=== PATIENT | male | born 1975 | race Caucasian/White ===

== ENCOUNTER 2017-01-13 17:05 | Emergency (ER) | payer SELFPAY ==
[~2017-01-13] VITALS: Ht 152.4 cm; Wt 55.2 kg
[2017-01-13 17:07] VITALS: Ht 152.4 cm; Wt 55.2 kg
[2017-01-13] MEDS ORDERED: SODIUM CHLORIDE 0.9% 1L BAG IV* STA (17:17)
[2017-01-13] MEDS ORDERED: PIPER-TAZO 3.375 GM IV (PMX) 50 ML IVPB STA (17:17)
[2017-01-13] MEDS ORDERED: CLINDAMYCIN 900 MG/D5W (PMX) 50 ML IVPB SCH (17:30)
[2017-01-13] MEDS ORDERED: VANCOMYCIN 1 GM (PMX) 250 ML IVPB ONE (17:30)
--- NOTE | 2017-01-13 18:09 | RADRPT ---
PROCEDURE: XR Left Hand. CLINICAL INDICATION: Trauma. Left hand pain. TECHNIQUE: Three views. Frontal lateral and oblique images of the left hand were obtained. COMPARISON: No prior studies are available for comparison. FINDINGS: There is no fracture or dislocation. There is extensive gas throughout the soft tissues of the left fourth finger and soft tissues surrou nding the third, fourth, and fifth metacarpals. There is marked diffuse soft tissue swelling posteri diane. Articular surfaces are intact. There is no lytic or blastic lesion. There is no radiopaque foreign body. IMPRESSION: 1. Extensive gas throughout the soft tissues of the left hand as described above. Findings are susp icious for gas gangrene. 2. No bone lytic lesion to suggest osteomyelitis. 3. Otherwise unremarkable study. Call report: A call report of the findings was made to Dr. Juan Luis Joseph on 01/13/2017 at 1805 andrei rs. RPTAT: QQ .Jon Oquendo MD, Date Time Electronically viewed and signed by .Jon Oquendo MD, on 01/13/2017 18:09 .R/
--- NOTE | 2017-01-13 18:15 | RADRPT ---
PROCEDURE: XR Chest. CLINICAL INDICATION: Sepsis. TECHNIQUE: Single frontal view. COMPARISON: None. FINDINGS: The lungs are clear. The heart size is normal. There is no pleural effusion. There is no pneumothorax. IMPRESSION: 1. Normal chest radiograph. RPTAT: QQ .Jon Oquendo MD, Date Time Electronically viewed and signed by .Jon Oquendo MD, on 01/13/2017 18:15 .R/
--- NOTE | 2017-01-13 18:30 | ERD ---
ER Documentation Chief Complaint Chief Complaint LEFT HAND SWELLING FROM INJURY 6 DAYS AGO HPI This is a 41-year-old male with no known past medical history who is presenting with concerns of necrotizing fasciitis to his left hand after a crush injury 8 days ago. The patient reportedly crushed his left index finger with a hammer while working 8 days ago. It started to become swollen and exquisitely tender. He was seen at an outpatient clinic several days ago and he was started on oral antibiotics. X-ray was reportedly completed at that time that did not reveal any obvious bony abnormality. Despite being started on oral antibiotics , his swelling started to get worse. His hand also started to turn green and black with color changes extending into the left hand. His distal left index finger also started to necrosis. Patient has decreased sensation to the finger. Capillary refill is no longer assessable. The patient was concerned and decided to come to the emergency department today. The patient denies feeling sick recently. The patient denies fever or chills. The patient has had no headache or vision changes. The patient does not endorse neck or back pain. The patient denies lightheadedness or dizziness. The patient has had no chest pain or shortness of breath or trouble breathing. The patient denies nausea or vomiting. The patient denies abdominal pain or changes to bowel movements or urination. The patient has had no focal deficits. The patient has had no weakness or numbness or tingling to the face or extremities, aside from the changes to his left hand. ROS All systems reviewed and are negative except as per history of present illness. PMhx/Soc History of Surgery: No Anesthesia Reaction: No Hx Neurological Disorder: No Hx Respiratory Disorders: No Hx Cardiac Disorders: No Hx Psychiatric Problems: No Hx Miscellaneous Medical Probl: No Hx Alcohol Use: No Hx Substance Use: No Hx Tobacco Use: No Smoking Status: Never smoker FmHx Family History: No coronary disease, No diabetes Physical Exam Vitals Vital Signs Date Time Temp Pulse Resp B/P Pulse Ox O2 Delivery O2 Flow Rate FiO2 01/13/17 17:30 98.3 99 20 121/67 99 Room Air 01/13/17 17:30 Nasal Cannula 01/13/17 17:07 99.1 106 18 128/71 99 Physical Exam Const: No apparent distress, well-developed, well-nourished Head: Atraumatic Eyes: Normal Conjunctiva. Extraocular movements intact. ENT: Normal External Ears, Nose and Mouth. Neck: Full range of motion. ~ No meningismus. Resp: Clear to auscultation bilaterally Cardio: Regular rate and rhythm, no murmurs Abd: Soft, non tender, non distended. Normal bowel sounds Skin: No petechiae or rashes Back: No midline or flank tenderness Ext: Necrosis to the distal left index finger with green and black discoloration to the entire left index finger extending into the dorsum of the left hand with significant edema and crepitus. The distal left index finger is necrotic, so capillary refill was not obtainable. Mid range of motion to that finger. Neur: Awake and alert, oriented 4. Cranial nerves intact. No facial droop. Normal strength and sensation in all extremities, aside from the changes to his left hand. He has decreased sensation to the left index finger. Coordination with finger to nose normal. Psych: Normal Mood and Affect Result Diagram: 01/13/17 1725 01/13/17 1725 Results 24 hrs Laboratory Tests Test 01/13/17 17:25 White Blood Count 31.010^3/ul Red Blood Count 4.4310^6/ul Hemoglobin 14.3g/dl Hematocrit 41.4% Mean Corpuscular Volume 93.5fl Mean Corpuscular Hemoglobin 32.3pg Mean Corpuscular Hemoglobin Concent 34.5g/dl Red Cell Distribution Width 11.5% Platelet Count 13134^3/UL Mean Platelet Volume 9.0fl Neutrophils % % Segmented Neutrophils % (Manual) 87% Band Neutrophils % (Manual) 5% Lymphocytes % % Lymphocytes % (Manual) 1% Monocytes % % Monocytes % (Manual) 7% Eosinophils % % Basophils % % Nucleated Red Blood Cells % 0.0/100WBC Neutrophils # 10^3/ul Neutrophils # (Manual) 27.410^3/ul Band Neutrophils # 1.510^3/ul Absolute Lymphocytes (Manual) 0.310^3/ul Lymphocytes # 10^3/ul Monocytes # 10^3/ul Absolute Monocytes (Manual) 2.110^3/ul Eosinophils # 10^3/ul Basophils # 10^3/ul Nucleated Red Blood Cells # 10^3/ul Platelet Estimate INCREASED Prothrombin Time 15.7Sec Prothrombin Time Ratio 1.2 INR International Normalized Ratio 1.24 Activated Partial Thromboplast Time 33.9Sec Sodium Level 132mmol/L Potassium Level 4.7mmol/L Chloride Level 90mmol/L Carbon Dioxide Level 22mmol/L Anion Gap 25 Blood Urea Nitrogen 14mg/dl Creatinine 0.74mg/dl Glucose Level 437mg/dl Lactic Acid Level 2.4mmol/L Calcium Level 9.7mg/dl Total Bilirubin Pending Direct Bilirubin Pending Indirect Bilirubin Pending Aspartate Amino Transf (AST/SGOT) 17IU/L Alanine Aminotransferase (ALT/SGPT) 14IU/L Alkaline Phosphatase 248IU/L Troponin I Pending Total Protein 8.1g/dl Albumin 4.0g/dl Globulin 4.10g/dl Albumin/Globulin Ratio 0.97 Current Medications Medications (Trade) Dose Ordered Sig/Jamaal Route PRN Reason Start Time Stop Time Status Last Admin Dose Admin Sodium Chloride 1710 ml 1,710 ml BOLUS OVER 2 HOURS STAT IV* 01/13/17 17:17 01/13/17 17:22 DC 01/13/17 18:07 Vancomycin HCl 250 ml @ 125 mls/hr ONCE ONCE IVPB 01/13/17 17:30 01/13/17 19:29 Piperacillin Sod/ Tazobactam Sod 50 ml @ 100 mls/hr ONCE STAT IVPB 01/13/17 17:17 01/13/17 17:46 DC 01/13/17 18:29 Clindamycin HCl/ Dextrose (Cleocin 900 Mg/ D5W (Pmx)) 50 ml @ 50 mls/hr ONCE IVPB 01/13/17 17:30 01/13/17 18:29 DC 01/13/17 18:08 Procedures/MDM MDM The patient's presentation warrants further investigation. I am highly suspicious of necrotizing fasciitis secondary to crush injury to the left index finger and hand. The patient will require transfer to a facility for higher level of care, trauma surgery and hand surgery. A septic workup will be completed. The patient will be started on broad-spectrum IV antibiotics as well as 30 mL/kg bolus of normal saline. An x-ray of the hand will also be obtained. LABS The patient's blood work was obtained and reviewed. The patient's CBC shows significant leukocytosis at greater than 30 with left shift. The patient is afebrile, but I am highly suspicious of a systemic infection given his symptoms that are consistent with necrotizing fasciitis. The patient is not anemic today. The patient's platelet count is unremarkable. The patient's CMP shows hyponatremia at 132, hyperglycemia at >400 with a lactic acidosis at 2.4. The patient has normal renal function testing. INR is mildly elevated at 1.2. Hepatic function testing is pending. EKG EKG read by me: Rate/Rhythm: Regular rate and rhythm at a rate of 96 Intervals: Normal [place]: Normal Impression: No evidence of ischemia or arrhythmia IMAGING CXR FINDINGS: The lungs are clear. The heart size is normal. There is no pleural effusion. There is no pneumothorax. IMPRESSION: Normal chest radiograph. Electronically viewed and signed by .Jon Oquendo MD, MD on 01/13/2017 18:15 XR Left Hand FINDINGS: There is no fracture or dislocation. There is extensive gas throughout the soft tissues of the left fourth finger and soft tissues surrounding the third, fourth, and fifth metacarpals. There is marked diffuse soft tissue swelling posteriorly. Articular surfaces are intact. There is no lytic or blastic lesion. There is no radiopaque foreign body. IMPRESSION: 1. Extensive gas throughout the soft tissues of the left hand as described above. Findings are suspicious for gas gangrene. 2. No bone lytic lesion to suggest osteomyelitis. 3. Otherwise unremarkable study. Call report: A call report of the findings was made to Dr. Kim Joseph on at 1805 hours. Electronically viewed and signed by .Jon Oquendo MD, MD on 01/13/2017 18:09 TREATMENT/DISPOSITION Patient's infectious symptoms have not stabilized and the patient is at risk of rapid decompensation. The patient will require transfer to a higher level of care with trauma and hand surgery for careful hydration, antibiotic therapy, and infectious source control and likely operative intervention. Severe Sepsis criteria: Infectious source: Necrotizing Fasciitis of the left hand End organ damage indicated by: Lactate > 2.0 mmol/L Sepsis Management: Time of recognition of sepsis: Upon arrival Within 3 hours of recognition: Blood cultures x 2 before broad-spectrum antibiotics: Yes 30 ml/kg NS bolus Completed Initial lactate: 2.4 Repeat lactate: Pending Time of recognition of septic shock: No septic shock Accepting Care Team Current data and ongoing care discussed. Admitting Physician: Dr. Salcedo of Trauma Surgery at [facility] Outstanding Data: Culture Results Critical Care: Critical care time: 35 minutes excluding all billable procedures Emergent fluid management while maintaining close respiratory support. Provision of immediate and broad-spectrum antibiotic therapy. Simultaneous assessment for possible sources in order to direct targeted therapy. Consideration for invasive and chemical support to prevent cardiopulmonary collapse. The patient's blood pressure was elevated at greater than 120/80 while in the emergency department. The patient was otherwise stable with no evidence of hypertensive urgency or emergency. The patient will require reevaluation during his admission after transfer. Departure Diagnosis: Primary Impression: Necrotizing fasciitis Additional Impression: Crushing injury of hand and fingers Encounter type: initial encounter Laterality: left Qualified Code: S67.22XA - Crushing injury of left hand and finger, initial encounter Condition: Critical KIM JOSEPH MD Jan 13, 2017 18:19
[2017-01-13 19:02] VITALS: BP 131/80; PULSE 102; RESP 18; TEMP 99.8
== END 2017-01-13 19:06 | disposition short-term general hospital (02) ==
LOC: E/R 17:05
DX: M72.6 Necrotizing fasciitis (principal); R40.2142 Coma scale, eyes open, spontaneous, at arrival to emergency department; R40.2252 Coma scale, best verbal response, oriented, at arrival to emergency department; R40.2362 Coma scale, best motor response, obeys commands, at arrival to emergency department; S67.191A Crushing injury of left index finger, initial encounter; M79.89 Other specified soft tissue disorders; M79.642 Pain in left hand; W27.0XXA Contact with workbench tool, initial encounter; Y92.9 Unspecified place or not applicable
CPT/HCPCS: 36415; 71010; 73130; 80053; 83605; 84484; 85025; 85610; 85651; 85730; 86140; 87040; 93005; 96374; 96375; 99291; J2543; J3370; J7030

== ENCOUNTER 2017-03-02 13:08 | Emergency (ER) | payer MEDICAID ==
[~2017-03-02] VITALS: Ht 157.5 cm; Wt 58.2 kg
[2017-03-02 13:11] VITALS: Ht 157.5 cm; Wt 58.2 kg
[2017-03-02 14:07] VITALS: PULSE 90; RESP 20
--- NOTE | 2017-03-02 14:33 | ERD ---
ER Documentation Chief Complaint Chief Complaint needs a wound check and dressing change to left hand sx HPI Patient is a 41-year-old male with history of necrotizing fasciitis who presents ED for concerns of a left hand wound check. Patient states 3 weeks ago he had his left hand grafted into his abdomen. Patient states that one week ago, his hand was removed from his abdomen. Patient has had his hand skin grafts for a 1 week now. Patient was advised to perform dressing changes at home. Patient states that he was given all at home supplies except for Xeroform. Patient states given that he did not have Xeroform, he was unable to do the dressing change and is here today for assistance with his dressing change. Patient denies any pain. Patient denies any fever, chills, nausea, vomiting, worsening redness, swelling or warmth to the affected extremity. 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 Patient states he is taking antibiotics however he does not know the name of the antibiotics. Patient did not bring the bottle with him. Patient has no other complaints or concerns at this time. Patient is only here to receive Xeroform and have a dressing change. Patient does have a follow-up appointment scheduled at [facility] hand/plastic surgery department on 03-05-17 at 9:20 AM. ROS All systems reviewed and are negative except as per history of present illness. Allergies Allergies: Coded Allergies: No Known Allergy (Unverified , 01/13/17) PMhx/Soc History of Surgery: No Anesthesia Reaction: No Hx Neurological Disorder: No Hx Respiratory Disorders: No Hx Cardiac Disorders: No Hx Psychiatric Problems: No Hx Miscellaneous Medical Probl: No Hx Alcohol Use: No Hx Substance Use: No Hx Tobacco Use: No Physical Exam Vitals Vital Signs Date Time Temp Pulse Resp B/P Pulse Ox O2 Delivery O2 Flow Rate FiO2 03/02/17 14:07 90 20 98 Room Air 03/02/17 13:11 98.4 112 18 115/85 100 Physical Exam GENERAL: Well-developed, well-nourished male. Appears in no acute distress. Speaking in full sentences. HEAD: Normocephalic, atraumatic. EYES: Pupils are equally reactive bilaterally. EOMs grossly intact. No conjunctival erythema. ENT: Moist mucous membranes. No uvula deviation. No kissing tonsils. NECK: Supple. No meningismus. Normal range of motion of the neck. LUNG: Clear to auscultation bilaterally. No rhonchi, wheezing, rales or coarse breath sounds. HEART: Regular rate and rhythm. No murmurs, rubs or gallops. EXTREMITIES: Equal pulses bilaterally. No peripheral clubbing, cyanosis or edema. No unilateral leg swelling. NEUROLOGIC: Alert and oriented. Moving all four extremities without any difficulty. Normal speech. Steady gait. SKIN: Left hand with numerous skin grafts in place. Skin grafts appears pink. Sloughing of the skin noted. (Patient states that this is not new.) No active bleeding or discharge noted. Sutures in place. Abdominal incision appears to be healing well with no wound dehiscence noted. No erythema or warmth surrounding incisional line. LEFT HAND: Patient is able to move digits 1-3, 5. Patient has sensation in all his digits. Pulse ox was checked on all digits and noted to be between 97 and 98%. 2+ RP pulses. Procedures/MDM MEDICAL DECISION MAKING: This is a 41-year-old male who presents ED for concerns of the left hand wound check. Patient was diagnosed with necrotizing fasciitis of his left hand approximately 2 months ago. Patient underwent a skin graft of his left hand. Patient states he was told to perform dressing changes at home and was given supplies however he was not given the Xeroform needed. Patient is requesting he be provided with Xeroform at this time. Dressing change was completed by myself as well as ED techs. Patient had an good O2 sat readings on all his digits and 2+ RP pulse. Sutures appeared in place. Sutures were not removed. Xeroform was placed. Gauze wrap was placed on top of the Xeroform. Patient was given additional pockets of Xeroform to use at home until he goes back to [facility] for his appointment scheduled on 03/05/17. Vital signs were reviewed. Patient was afebrile. Patient was noted to be slightly tachycardic at initial presentation. Upon recheck patient's pulses within normal limits. Patient was advised to follow-up at [facility] as scheduled. Patient was advised to continue all antibiotics as prescribed. Patient was given strict wound care instructions advised to return for any new or worsening symptoms. Patient was non-toxic, [id number] prior to discharge. Low suspicion for neurovascular changes at this time. PRESCRIPTIONS: Continue to take antibiotics as prescribed. Complete full course. DISCHARGE: At this time, the patient is stable for discharge and outpatient management. Post-procedural wound care was discussed with the patient. I have instructed the patient to promptly return to the ER for any new or worsening symptoms including increasing pain, fever, warmth, redness or swelling. The patient and/ or family expressed understanding of and agreement with this plan. All questions were answered. Home care instructions were provided. Disclaimer: Inadvertent spelling and grammatical errors are likely due to EHR/ dictation software use and do not reflect on the overall quality of patient care. Also, please note that the electronic time recorded on this note does not necessarily reflect the actual time of the patient encounter. Departure Diagnosis: Primary Impression: Dressing change or removal, surgical wound Additional Impression: Encounter for wound re-check Condition: Stable Patient Instructions: Wound Packing, Post Op Wound Check, Pain Referrals: [facility] YOU HAVE RECEIVED A MEDICAL SCREENING EXAM AND THE RESULTS INDICATE THAT YOU DO NOT HAVE A CONDITION THAT REQUIRES URGENT TREATMENT IN THE EMERGENCY DEPARTMENT. FURTHER EVALUATION AND TREATMENT OF YOUR CONDITION CAN WAIT UNTIL YOU ARE SEEN IN YOUR DOCTORS OFFICE WITHIN THE NEXT 1-2 DAYS. IT IS YOUR RESPONSIBILITY TO MAKE AN APPOINTMENT FOR FOLOW-UP CARE. IF YOU HAVE A PRIMARY DOCTOR --you should call your primary doctor and schedule an appointment IF YOU DO NOT HAVE A PRIMARY DOCTOR YOU CAN CALL OUR PHYSICIAN REFERRAL HOTLINE AT IF YOU CAN NOT AFFORD TO SEE A PHYSICIAN YOU CAN CHOSE FROM THE FOLLOWING [facility] [address] [facility]. [facility] [address] [facility] [address] [facility] [facility] [address] [facility] [address] [facility]. [facility]. [address] [facility]. [facility] YOU HAVE RECEIVED A MEDICAL SCREENING EXAM AND THE RESULTS INDICATE THAT YOU DO NOT HAVE A CONDITION THAT REQUIRES URGENT TREATMENT IN THE EMERGENCY DEPARTMENT. FURTHER EVALUATION AND TREATMENT OF YOUR CONDITION CAN WAIT UNTIL YOU ARE SEEN IN YOUR DOCTORS OFFICE WITHIN THE NEXT 1-2 DAYS. IT IS YOUR RESPONSIBILITY TO MAKE AN APPOINTMENT FOR FOLOW-UP CARE. IF YOU HAVE A PRIMARY DOCTOR --you should call your primary doctor and schedule and appointment IF YOU DO NOT HAVE A PRIMARY DOCTOR YOU CAN CALL OUR PHYSICIAN REFERRAL HOTLINE AT . IF YOU CAN NOT AFFORD TO SEE A PHYSICIAN YOU CAN CHOSE FROM THE FOLLOWING [facility], [facility] INSTITUTIONS: [facility] [address] [place] [address] [facility] [address] [place] [address] [facility] [address] [place] [address] [facility] Additional Instructions: Follow-up at [facility] Plastic surgery clinic as scheduled on 03-05-17 at 920am. Continue all antibiotics as prescribed to you. Return for any new or worsening symptoms including pain, worsening swelling, redness, fevers or chills. Call your primary care doctor TOMORROW for an appointment during the next 1-2 days.See the doctor sooner or return here if your condition worsens before your appointment time. RUBEN CABRALES PA-C Mar 02, 2017 14:31
== END 2017-03-02 14:20 | disposition home or self-care (01) ==
LOC: FTE 13:08
DX: Z48.01 Encounter for change or removal of surgical wound dressing (principal)
CPT/HCPCS: 99281